=== PATIENT | female | born 1970 | race Caucasian/White ===

== ENCOUNTER 2017-04-09 12:52 | Inpatient (IN) | payer MEDICAID, OTHER ==
[~2017-04-09 12:52] MED LIST: AMLO5TAB96 PO; ASPI81 PO; BACL10TA PO; BENZ1TAB PO; CLOZ100T3 PO; NIAC500 PO; PREV30CA36 PO; RISP1 PO; TRAM50 PO
[2017-04-09 20:15] VITALS: BP 150/71; PULSE 82; RESP 20; TEMP 99.4; O2SAT 97
[2017-04-09] MEDS ORDERED: LORazepam 2 MG/ML VIAL IM PRN (20:45)
[2017-04-09] MEDS ORDERED: LORazepam 1 MG TAB PO PRN (20:45)
[2017-04-09] MEDS ORDERED: ACETAMINOPHEN 325 MG TAB PO PRN (20:45)
[2017-04-09] MEDS ORDERED: ALUMINUM/MAGNESIUM/SIMETH 30 ML CUP PO PRN (20:45)
[2017-04-09] MEDS: REMOVE OLD NICOTINE PATCH T-DERMAL SCH (21:00)
[2017-04-09] MEDS: QUEtiapine FUMARATE 200 MG TAB PO SCH (21:15)
[2017-04-09] MEDS: diphenhydrAMINE HCL 25 MG CAP PO SCH (21:15)
[2017-04-09] MEDS: GABAPENTIN 300 MG CAP PO SCH (21:30)
[2017-04-10 05:59] VITALS: BP 139/71; PULSE 102; RESP 18; TEMP 98.9
[2017-04-10] MEDS: PANTOPRAZOLE SOD 40 MG DELAYED RELEASE TAB PO SCH (09:00)
[2017-04-10] MEDS: QUEtiapine FUMARATE 200 MG TAB PO SCH ×2 (09:00→20:51)
[2017-04-10] MEDS: NICOTINE 21 MG/24 HR PATCH T-DERMAL SCH (09:00)
[2017-04-10] MEDS ORDERED: LINZESS 290 MCG PO SCH (09:00)
[2017-04-10] MEDS: GABAPENTIN 300 MG CAP PO SCH ×4 (09:00→20:51)
[2017-04-10 09:04] LABS: BICARBONATE 25.4 MEQ/L (21.0-32.0); BLOOD UREA NITROGEN 10 MG/DL (7-18); GLOMERULAR FILTRATION RATE 80 ML/MIN (>89)
[2017-04-10 09:08] LABS: HDL CHOLESTEROL 73.2 MG/DL (40.0-60.0); LDL CHOLESTEROL 66 MG/DL (0-99)
[2017-04-10 09:27] LABS: ANION GAP 9 MEQ/L (5-15); CHLORIDE 109 MEQ/L (98-107); POTASSIUM 3.7 MEQ/L (3.5-5.1); SODIUM (NA) 143 MEQ/L (136-145)
[2017-04-10 11:09] LABS: HEMOGLOBIN A1a 1.4 %; HEMOGLOBIN A1b 1.6 %; HEMOGLOBIN Ao 86.1 %; HEMOGLOBIN LA1C 1.9 %; HEMOGLOBIN P3 3.3 %
[2017-04-10 15:48] VITALS: BP 125/84; PULSE 123; RESP 18; O2SAT 96
[2017-04-10] MEDS ORDERED: QUET-73 PO (17:20)
[2017-04-10] MEDS ORDERED: GABA300C5 PO (17:20)
[2017-04-10] MEDS ORDERED: DIPH25CA PO (17:20)
[2017-04-10] MEDS ORDERED: MIRT30TA PO (17:20)
[2017-04-10] MEDS ORDERED: HYDR100C PO (17:20)
[2017-04-10] MEDS ORDERED: OMEP40CA2 PO (17:20)
[2017-04-10] MEDS ORDERED: LINA290C PO (17:20)
[2017-04-10] MEDS: LORazepam 2 MG TAB PO SCH ×2 (17:22→20:50)
--- NOTE | 2017-04-10 18:12 | HHI.HP ---
Provisional Diagnosis Admission Date Apr 09, 2017 at 20:00 [place] I. Schizoaffective disorder [place] II. deferred [place] III. GERD [place] IV. chronic mental illness, limited social support [place] V. 35 Certification of Person's Competence To Provide Express and Informed Consent I have personally examined Natasha Carter , a person being served at [facility] on, Apr 10, 2017 18:11. Express and informed consent means consent voluntarily given in writing, by a competent person, after sufficient explanation and disclosure of the subject matter involved to enable the person to make a knowing and willful decision without any element of force, fraud, deceit, duress, or other form of constraint or coercion. This person is 18 years of age or older, is not now known to be incompetent to consent to treatment with a guardian advocate, and does not have a health care surrogate or proxy currently making medical treatment decisions. I have found this person to be one of the following: [] Competent to provide express and informed consent, as defined above, for voluntary admission to this facility and is competent to provide express and informed consent for treatment. He/she has the consistent capacity to make well reasoned, willful, and knowing decisions concerning his or her medical or mental health treatment. The person fully and consistently understands the purpose of the admission for examination/placement and is fully capable of personally exercising all rights assured [place] [x] Incompetent to provide express and informed consent to voluntary admission, and this is incompetent to provide express and informed consent to treatment. The person must be transferred to involuntary status and a petition for a guardian advocate filed with the Circuit Court. [] Refusing to provide express and informed consent to voluntary admission but is competent to provide express and informed consent for treatment. The person must be discharged or transferred to involuntary status. Form shall be completed within 24 hours of a person's arrival at the receiving facility and filed in the clinical record of each person: 1. Admitted on a voluntary basis 2. Permitted to provide express and informed consent to his/her own treatment 3. Allowed to transfer from involuntary to voluntary status 4. Prior to permitting a person to consent to his or her own treatment after having been previously found incompetent to consent to treatment. History of Present Illness Capacity: Has Capacity (for medications only) HPI Patient is a 47 y/o woman, , unemployed on SSI, domiciled with mother, past psychiatric history of schizoaffective disorder, previous psychiatric admissions (last here at [facility] in 2002), no previous suicide attempts who presented to the hospital under [place] act due to recent decompensation. Patient was admitted to the inpatient psychiatry unit where she was found lying on hospital bed asleep and unable to participate in interview. After discussing with nursing staff, it was reported that the patient had catatonic-like presentation and would not engage in interview. Patient was given Ativan which she began to respond to but had limited responses due to the same. Patient was noted to be disorganized, responded inappropriately with nonsensical statements. She was able to state taking clozaril which was a medication that she previously had. Currently patient with limited interaction. Family psychiatric history: patient unable to respond adequately to. Past psychiatric history: previous psychiatric diagnosis of schizoaffective disorder as per chart, previous psychiatric admissions (last admission at [facility] was in 2002), denies previous suicide attempts or self injurious behavior. Has had previous medication trials which she mentioned clozaril (as stated above). Patient was not able to respond if she had history of abuse. Substance use history: denies Past medical history: GERD as per chart Allergies: Haloperidol Social history: as per chart, , no children, living with mother, unemployed on [facility]. Review of Systems ROS Limitations: Psychotic, Other (catatonic) Except as stated in HPI: all other systems reviewed are Neg Past Psych History Psychological trauma history patient unable to respond adequately due to psychosis Violence risk - others (6 mos) low Violence risk - self (6 mos) low Substance Abuse History Drugs/Alcohol past 12 months denies Past Family Social History Coded Allergies: haloperidol (Unverified Allergy, Severe, 04/10/17) Reported Medications Omeprazole (Omeprazole) 40 Mg Cap, 40 MG PO DAILY, #30 CAP 0 Refills 04/10/17 Mirtazapine (Mirtazapine) 30 Mg Tab, 30 MG PO HS for Depression Control, #30 TAB 0 Refills 04/10/17 Hydroxyzine Pamoate (Hydroxyzine Pamoate) 100 Mg Cap, 100 MG PO QID Y for ANXIETY, CAP 0 Refills 04/10/17 Gabapentin (Gabapentin) 300 Mg Cap, 300 MG PO QID, #90 CAP 0 Refills 04/10/17 Quetiapine ER (Quetiapine ER) 400 Mg Tab, 800 MG PO DAILYqhs, #30 TAB 0 Refills 04/10/17 Linaclotide (Linzess) 290 Mcg Cap, 290 MCG PO DAILY, CAP 0 Refills 04/10/17 Diphenhydramine (Diphenhydramine) 25 Mg Cap, 25 MG PO HS Y for INSOMNIA, CAP 0 Refills 04/10/17 Current Medications Medications (Trade) Dose Ordered Sig/Vinicio Route Start Time Stop Time Status Last Admin (Ativan) 1 mg Q6H PRN PO 04/09/17 20:45 (Ativan Inj) 1 mg Q6H PRN IM 04/09/17 20:45 04/10/17 11:06 (Habitrol 21 Mg Patch.24 Hr) 1 patch DAILY T-DERMAL 04/10/17 09:00 Miscellaneous Information 1 HS T-DERMAL 04/09/17 21:00 (Tylenol) 650 mg Q4H PRN PO 04/09/17 20:45 (Milk Of Magnesia Liq) 30 ml DAILY PRN PO 04/09/17 20:45 (Mag-Al Plus Susp Liq) 30 ml Q6H PRN PO 04/09/17 20:45 (Benadryl) 25 mg HS PO 04/09/17 21:15 Patient Own Medication PT OWN MED: LINZ... DAILY PO 04/10/17 09:00 Future Hold (SEROquel) 400 mg BID PO 04/09/17 21:15 (Neurontin) 300 mg QID PO 04/09/17 21:30 04/10/17 17:22 (Vistaril) 100 mg TID PRN PO 04/09/17 21:15 (Remeron) 30 mg HS PO 04/10/17 21:00 (Protonix) 40 mg DAILY PO 04/10/17 09:00 (Ativan) 2 mg Q6H PO 04/10/17 15:00 04/10/17 17:22 Family History patient unable to respond adequately due to psychosis Social History as per chart, , no children, living with mother, unemployed on SSI. Patient's Strengths (min. 2) limited verbal response, mother as social support Physical Exam Patient found to be lying on hospital bed appearing catatonic, limited movement of extremities, no tremors of EPS, noted psychomotor retardation. Vital Signs Vital Signs Date Time Temp Pulse Resp B/P (MAP) Pulse Ox O2 Delivery O2 Flow Rate FiO2 04/10/17 15:48 123 18 125/84 (98) 96 04/10/17 05:59 98.9 I/O 04/10/17 04/10/17 04/11/17 08:00 16:00 00:00 Intake Total 240 ml Balance 240 ml Lab Results labs reviewed Test 04/10/17 07:10 Blood Urea Nitrogen 10 MG/DL Creatinine 0.77 MG/DL Random Glucose 95 MG/DL Calcium Level 9.0 MG/DL Sodium Level 143 MEQ/L Potassium Level 3.7 MEQ/L Chloride Level 109 MEQ/L Carbon Dioxide Level 25.4 MEQ/L Anion Gap 9 MEQ/L Estimat Glomerular Filtration Rate 80 ML/MIN Hemoglobin A1c 5.4 % Triglycerides Level 58 MG/DL Cholesterol Level 151 MG/DL LDL Cholesterol 66 MG/DL HDL Cholesterol 73.2 MG/DL Cholesterol/HDL Ratio 2.06 RATIO Mental Status Examination Appearance appears younger than stated age, in [facility], lying on hospital bed, superficially cooperative due to catatonic-like presentation, poor eye contact. Speech: Slow Memory: Impaired (describe) Thought Process: Other (disorganized) Thought Content: Other (nonsensical statements) Language limited response, non spontanous Fund of Knowledge unable to assess Hallucination Type: None (unable to assess due to current presentation) Attention and Concentration: Abnormal Suicidal Ideation: No Previous Suicide Attempts: No Homicidal Ideation: No Previous Homicide Attempts: No Insight: Poor Judgment: Poor Affect: Other Affect if Inappropriate: Flat Mood: Other (patient could not express due to current presentation) Assessment & Plan Problem List: (1) Schizoaffective disorder, bipolar type, with catatonia ICD Codes: F25.0 - Schizoaffective disorder, bipolar type; F06.1 - Catatonic disorder due to known physiological condition Assessment & Plan Estimated LOS: 5-7 days. Patient is a 47 y/o woman who carries a diagnosis of schizoaffective disorder brought in under [place] act and currently noted to be catatonic with limited interaction during interview. Will start lorazepam 2mg PO q6hrs for catatonia. Continue home meds of quetiapine 400mg PO BID, mirtazapine 30mg PO HS, gabapentin 300mg PO QID. Monitor for medication response and ADRs. Continue to monitor mood and behavior. Collateral information pending from mother. Petition for involuntary admission started, will request second opinion. Discharge planning in progress. Aly Carroll MD Apr 10, 2017 18:12
[2017-04-10] MEDS: diphenhydrAMINE HCL 25 MG CAP PO SCH (20:50)
[2017-04-10] MEDS: MIRTAZAPINE 15 MG TAB PO SCH (20:51)
[2017-04-10] MEDS: REMOVE OLD NICOTINE PATCH T-DERMAL SCH (20:51)
[2017-04-11] MEDS: LORazepam 2 MG TAB PO SCH ×2 (04:10→08:56)
[2017-04-11 05:50] VITALS: BP 110/60; PULSE 93; RESP 18; TEMP 97.3; O2SAT 99
[2017-04-11] MEDS: QUEtiapine FUMARATE 200 MG TAB PO SCH ×2 (08:56→21:00)
[2017-04-11] MEDS: GABAPENTIN 300 MG CAP PO SCH ×4 (08:56→21:00)
[2017-04-11] MEDS: PANTOPRAZOLE SOD 40 MG DELAYED RELEASE TAB PO SCH (08:56)
[2017-04-11] MEDS: NICOTINE 21 MG/24 HR PATCH T-DERMAL SCH (08:56)
--- NOTE | 2017-04-11 11:17 | PD.PSY.CON ---
Provisional Diagnosis Admission Date Apr 09, 2017 at 20:00 [place] I. 1. Schizoaffective disorder [place] II. Deferred History of Present Illness Service Psychiatry Consult Requested By Dr. Carroll Reason for Consult Second opinion for involuntary psychiatric hospitalization Primary Care Physician Melvi Rodriguez MD HPI From Dr. Carroll's H&P: Patient is a 47 y/o woman, , unemployed on [facility], domiciled with mother, past psychiatric history of schizoaffective disorder, previous psychiatric admissions (last here at [facility] in 2002), no previous suicide attempts who presented to the hospital under [place] act due to recent decompensation. Patient was admitted to the inpatient psychiatry unit where she was found lying on hospital bed asleep and unable to participate in interview. After discussing with nursing staff, it was reported that the patient had catatonic-like presentation and would not engage in interview. Patient was given Ativan which she began to respond to but had limited responses due to the same. Patient was noted to be disorganized, responded inappropriately with nonsensical statements. She was able to state taking clozaril which was a medication that she previously had. Currently patient with limited interaction. Family psychiatric history: patient unable to respond adequately to. Past psychiatric history: previous psychiatric diagnosis of schizoaffective disorder as per chart, previous psychiatric admissions (last admission at [facility] was in 2002), denies previous suicide attempts or self injurious behavior. Has had previous medication trials which she mentioned clozaril (as stated above). Patient was not able to respond if she had history of abuse. Substance use history: denies Past medical history: GERD as per chart Allergies: Haloperidol Social history: as per chart, , no children, living with mother, unemployed on [facility]. On my examination today: Patient seen and examined with nurse. Chart reviewed. Case discussed with nursing staff. On my examination today, the patient is somewhat stuporous and largely mute. She does verbalize a little, saying "I'm so confused." No posturing or stereotypies noted. She does appear somewhat internally preoccupied. Psychiatric interview is limited by ongoing catatonic state, and I am unable to obtain any meaningful past psychiatric, family, chemical dependency or social history from this patient for this reason. Review of Systems ROS Limitations: Psychotic, Poor Historian Except as stated in HPI: all other systems reviewed are Neg Past Family Social History Coded Allergies: haloperidol (Unverified Allergy, Severe, 04/10/17) Past Medical History See EMR Reported Medications Omeprazole (Omeprazole) 40 Mg Cap, 40 MG PO DAILY, #30 CAP 0 Refills 04/10/17 Mirtazapine (Mirtazapine) 30 Mg Tab, 30 MG PO HS for Depression Control, #30 TAB 0 Refills 04/10/17 Hydroxyzine Pamoate (Hydroxyzine Pamoate) 100 Mg Cap, 100 MG PO QID Y for ANXIETY, CAP 0 Refills 04/10/17 Gabapentin (Gabapentin) 300 Mg Cap, 300 MG PO QID, #90 CAP 0 Refills 04/10/17 Quetiapine ER (Quetiapine ER) 400 Mg Tab, 800 MG PO DAILYqhs, #30 TAB 0 Refills 04/10/17 Linaclotide (Linzess) 290 Mcg Cap, 290 MCG PO DAILY, CAP 0 Refills 04/10/17 Diphenhydramine (Diphenhydramine) 25 Mg Cap, 25 MG PO HS Y for INSOMNIA, CAP 0 Refills 04/10/17 Current Medications Medications (Trade) Dose Ordered Sig/Vinicio Route Start Time Stop Time Status Last Admin (Ativan) 1 mg Q6H PRN PO 04/09/17 20:45 (Ativan Inj) 1 mg Q6H PRN IM 04/09/17 20:45 04/10/17 11:06 (Habitrol 21 Mg Patch.24 Hr) 1 patch DAILY T-DERMAL 04/10/17 09:00 Miscellaneous Information 1 HS T-DERMAL 04/09/17 21:00 (Tylenol) 650 mg Q4H PRN PO 04/09/17 20:45 (Milk Of Magnesia Liq) 30 ml DAILY PRN PO 04/09/17 20:45 (Mag-Al Plus Susp Liq) 30 ml Q6H PRN PO 04/09/17 20:45 (Benadryl) 25 mg HS PO 04/09/17 21:15 04/10/17 20:50 Patient Own Medication PT OWN MED: LINZ... DAILY PO 04/10/17 09:00 Future Hold (SEROquel) 400 mg BID PO 04/09/17 21:15 04/11/17 08:56 (Neurontin) 300 mg QID PO 04/09/17 21:30 04/11/17 08:56 (Vistaril) 100 mg TID PRN PO 04/09/17 21:15 (Remeron) 30 mg HS PO 04/10/17 21:00 04/10/17 20:51 (Protonix) 40 mg DAILY PO 04/10/17 09:00 04/11/17 08:56 (Ativan) 2 mg Q6H PO 04/10/17 15:00 04/11/17 04:10 Patient's Strengths (min. 2) In a monitored setting. Per RN did have some positive response to Ativan. Physical Exam Physical exam completed by ED provider. On my examination today, the patient appears to be in no acute physical distress. She is somewhat stuporous but no other motor abnormalities noted. Labs and vitals reviewed: Vital Signs Vital Signs Date Time Temp Pulse Resp B/P (MAP) Pulse Ox O2 Delivery O2 Flow Rate FiO2 04/11/17 05:50 97.3 93 18 110/60 (77) 99 Lab Results Laboratory Tests Test 04/10/17 07:10 Blood Urea Nitrogen 10 MG/DL Creatinine 0.77 MG/DL Random Glucose 95 MG/DL Calcium Level 9.0 MG/DL Sodium Level 143 MEQ/L Potassium Level 3.7 MEQ/L Chloride Level 109 MEQ/L Carbon Dioxide Level 25.4 MEQ/L Anion Gap 9 MEQ/L Estimat Glomerular Filtration Rate 80 ML/MIN Hemoglobin A1c 5.4 % Triglycerides Level 58 MG/DL Cholesterol Level 151 MG/DL LDL Cholesterol 66 MG/DL HDL Cholesterol 73.2 MG/DL Cholesterol/HDL Ratio 2.06 RATIO Mental Status Examination No hand tremor, no posturing, no stereotypies Appearance Disheveled. In hospital gown. Speech: Slow (largely mute) Orientation: Person Memory: Impaired (describe) Thought Process: Other (slowed) Thought Content: Other (limited sample) Language Limited sample Fund of Knowledge Limited sample Hallucination Type: None (appears a little internally preoccupied) Attention and Concentration: Abnormal Suicidal Ideation: No (unable to assess) Previous Suicide Attempts: No Homicidal Ideation: No (unable to assess) Previous Homicide Attempts: No Insight: Poor Judgment: Poor Affect if Inappropriate: Flat Mood: Other (unable to assess) Assessment & Plan Problem List: (1) Schizoaffective disorder, bipolar type, with catatonia ICD Codes: F25.0 - Schizoaffective disorder, bipolar type; F06.1 - Catatonic disorder due to known physiological condition Assessment & Plan Given the circumstances of the patient's presentation here and her presentation on my examination today, I concur with Dr. Carroll that the patient meets criteria for involuntary psychiatric hospitalization under the Escudero act. I have completed the second opinion paperwork. Further care as per Dr. Carroll. Thank you very much for this consultation. Signing off. Discharge Planning Per Dr. Carroll. Request HC Surrog/Guard Advoc?: No Nigel Churchill MD Apr 11, 2017 11:17
--- NOTE | 2017-04-11 14:02 | HHI.PYPN ---
Subjective Remarks Patient seen for follow up; chart reviewed. Discussion with nursing staff, patient yesterday after start of Ativan was active, no longer appearing catatonic, and began to undress which she required redirection and moved to the acute unit. Patient was found lying on bed, noted to be sedated but responsive. Patient was attempted to wake up but was too sedated to engage appropriately in interview. Patient able to nod yes or no to questions which she denies any SI or HI. Review of Systems ROS Limitations: Other (sedated) Objective Alert: Yes [place]: Person Mood: Other (unable to express mood due to sedation) Affect: Other (sedated) Memory Intact: Comment (unable to assess) Hallucinations: Other (unable to assess) Delusions: No Delusion Type: Other Suicidal: Ideation (denies) Homicidal: Ideation (denies) Insight/Judgment poor insightt, impulse control and judgment Vitals/IOs Vital Signs Date Time Temp Pulse Resp B/P (MAP) Pulse Ox O2 Delivery O2 Flow Rate FiO2 04/11/17 05:50 97.3 93 18 110/60 (77) 99 Assessment & Plan Problem List: (1) Schizoaffective disorder, bipolar type, with catatonia ICD Codes: F25.0 - Schizoaffective disorder, bipolar type; F06.1 - Catatonic disorder due to known physiological condition Assessment & Plan Patient no longer noted to be catatonic but noted to be very sedated. Will reduce Ativan to 1mg PO q6hrs for catatonia. Continue other medications and care as indicated. Monitor mood and behavior. Discharge planning in progress. Justification for Cont. Inpt. At risk for further decompensation if at lower level of care. Request HC Surrog/Guard Advoc?: Aly Fairchild MD Apr 11, 2017 14:02
[2017-04-11] MEDS: LORazepam 1 MG TAB PO SCH ×2 (15:00→21:00)
[2017-04-11 17:57] VITALS: BP 135/62; PULSE 89; RESP 17; TEMP 97.9; O2SAT 98
[2017-04-11] MEDS: diphenhydrAMINE HCL 25 MG CAP PO SCH (21:00)
[2017-04-11] MEDS: MIRTAZAPINE 15 MG TAB PO SCH (21:00)
[2017-04-11] MEDS: REMOVE OLD NICOTINE PATCH T-DERMAL SCH (21:00)
[2017-04-12] MEDS: LORazepam 1 MG TAB PO SCH ×3 (03:00→15:00)
[2017-04-12 06:16] VITALS: BP 120/71; PULSE 100; RESP 15; TEMP 98; O2SAT 98
[2017-04-12] MEDS: QUEtiapine FUMARATE 200 MG TAB PO SCH ×2 (07:53→21:00)
[2017-04-12] MEDS: GABAPENTIN 300 MG CAP PO SCH ×4 (07:53→21:00)
[2017-04-12] MEDS: PANTOPRAZOLE SOD 40 MG DELAYED RELEASE TAB PO SCH (07:53)
[2017-04-12] MEDS: NICOTINE 21 MG/24 HR PATCH T-DERMAL SCH (07:54)
--- NOTE | 2017-04-12 15:35 | HHI.PYPN ---
Subjective Remarks Pt seen and discussed with staff. She has been compliant with medications but Ativan was held because of sedation. No behavioral problems on unit. No SI/HI. NO catatonia. Objective Alert: Yes [place]: Person Mood: Calm, Other Affect: Restricted Memory Intact: Comment (fair) Hallucinations: Other (none) Delusions: No Delusion Type: Other Suicidal: Ideation (denies) Homicidal: Ideation (denies) Insight/Judgment limited Vitals/IOs Vital Signs Date Time Temp Pulse Resp B/P (MAP) Pulse Ox O2 Delivery O2 Flow Rate FiO2 04/12/17 06:16 98.0 100 15 120/71 (87) 98 Assessment & Plan Problem List: (1) Schizoaffective disorder, bipolar type, with catatonia ICD Codes: F25.0 - Schizoaffective disorder, bipolar type; F06.1 - Catatonic disorder due to known physiological condition Assessment & Plan Will taper lorazepam again due to sedation. Estimated LOS: days Justification for Cont. Inpt. medication changes requiring monitoring Request HC Surrog/Guard Advoc?: Pinky Kebede MD Apr 12, 2017 15:35
[2017-04-12 18:33] VITALS: BP 127/64; PULSE 71; RESP 18; TEMP 97.9; O2SAT 98
[2017-04-12] MEDS: REMOVE OLD NICOTINE PATCH T-DERMAL SCH (21:00)
[2017-04-12] MEDS: MIRTAZAPINE 15 MG TAB PO SCH (21:00)
[2017-04-12] MEDS: diphenhydrAMINE HCL 25 MG CAP PO SCH (21:00)
[2017-04-13] MEDS: QUEtiapine FUMARATE 200 MG TAB PO SCH ×3 (03:13→21:00)
[2017-04-13] MEDS: MIRTAZAPINE 15 MG TAB PO SCH (03:15)
[2017-04-13] MEDS: GABAPENTIN 300 MG CAP PO SCH ×5 (03:18→21:00)
[2017-04-13 06:26] VITALS: BP 109/67; PULSE 81; RESP 18; TEMP 98.3; O2SAT 95
[2017-04-13] MEDS: NICOTINE 21 MG/24 HR PATCH T-DERMAL SCH (08:41)
[2017-04-13] MEDS: PANTOPRAZOLE SOD 40 MG DELAYED RELEASE TAB PO SCH (08:41)
[2017-04-13] MEDS ORDERED: LORazepam 1 MG TAB PO SCH (09:00)
[2017-04-13] MEDS: MAGNESIUM HYDROXIDE SUSP 30 ML CUP PO PRN (09:15)
--- NOTE | 2017-04-13 16:18 | HHI.PYPN ---
Subjective Remarks Pt seen and discussed with staff. Pt continues to experience sedation and has slept most of the afternoon. She reports that she only takes mirtazapine for sleep at home and prior to hospitalization had not been compliant with psychiatric medications. She reports that thoughts are more clear today but still foggy. She denies SI/HI. Objective Alert: Yes [place]: Person, Place, Date, Situation Mood: Calm, Other Affect: Restricted Memory Intact: Comment (fair) Hallucinations: Other (none) Delusions: No Delusion Type: Other (none) Suicidal: Ideation (denies) Homicidal: Ideation (denies) Insight/Judgment fair Vitals/IOs Vital Signs Date Time Temp Pulse Resp B/P (MAP) Pulse Ox O2 Delivery O2 Flow Rate FiO2 04/13/17 06:26 98.3 81 18 109/67 (81) 95 Intake and Output 04/13/17 04/13/17 04/14/17 08:00 16:00 00:00 Intake Total 240 ml Balance 240 ml Assessment & Plan Problem List: (1) Schizoaffective disorder, bipolar type, with catatonia ICD Codes: F25.0 - Schizoaffective disorder, bipolar type; F06.1 - Catatonic disorder due to known physiological condition Assessment & Plan Will hold mirtazapine due to sedation. If persists, will need to consider lower daytime seroquel dose. Estimated LOS: days Justification for Cont. Inpt. medication changes requiring monitoring Request HC Surrog/Guard Advoc?: Pinky Kebede MD Apr 13, 2017 16:18
[2017-04-13 18:24] VITALS: BP 98/60; PULSE 83; RESP 18; TEMP 98.3; O2SAT 96
[2017-04-13] MEDS: diphenhydrAMINE HCL 25 MG CAP PO SCH (21:00)
[2017-04-13] MEDS: REMOVE OLD NICOTINE PATCH T-DERMAL SCH (21:00)
[2017-04-14 04:36] VITALS: BP 124/64; PULSE 75; RESP 17; TEMP 98
[2017-04-14] MEDS: NICOTINE 21 MG/24 HR PATCH T-DERMAL SCH (09:00)
[2017-04-14] MEDS: PANTOPRAZOLE SOD 40 MG DELAYED RELEASE TAB PO SCH (09:00)
[2017-04-14] MEDS: GABAPENTIN 300 MG CAP PO SCH ×4 (09:00→20:42)
[2017-04-14] MEDS: QUEtiapine FUMARATE 200 MG TAB PO SCH ×2 (09:00→20:42)
--- NOTE | 2017-04-14 17:55 | HHI.PYPN ---
Subjective Remarks Patient seen for follow-up, chart reviewed. Patient seen lying on hospital bed, calm and cooperative with interview. Nursing reported patient continues to be disorganized , no longer catatonic, taking medications. Patient reports having had difficulty with sleep last night, mood having been "good, bad and otherwise " patient could not elaborate why she was feeling sad only that she felt bad haivng said mean things (unspecified to whom). She's noted to answer inappropriately with thought blocking and responding to internal stimuli. She reports AH but is unable to elaborate. Review of Systems Except as stated in HPI: all other systems reviewed are Neg Objective Alert: Yes [place]: Person, Place, Date, Situation Mood: Calm, Other Affect: Labile (laughing inappropriatley at times) Memory Intact: Comment (fair) Hallucinations: Auditory Delusions: No Delusion Type: Other (none) Suicidal: Ideation (denies) Homicidal: Ideation (denies) Insight/Judgment poor insight, fair impulse control, limited judgment Vitals/IOs Vital Signs Date Time Temp Pulse Resp B/P (MAP) Pulse Ox O2 Delivery O2 Flow Rate FiO2 04/14/17 04:36 98.0 75 17 124/64 (84) 04/13/17 18:24 96 Intake and Output 04/14/17 04/14/17 04/15/17 08:00 16:00 00:00 Intake Total 260 ml Balance 260 ml Assessment & Plan Problem List: (1) Schizoaffective disorder, bipolar type, with catatonia ICD Codes: F25.0 - Schizoaffective disorder, bipolar type; F06.1 - Catatonic disorder due to known physiological condition Assessment & Plan Patient continues to be disorganized, internally preoccupied with AH but no longer noted to be catatonic. Will increase diphenhydramine 50mg PO HS as she reports sleep difficulty. Will continue current quetiapine dose and consider adding second antipsychotic if partial response with current regimen. Discharge planning in progress. Justification for Cont. Inpt. At risk for further decompensation if at lower level of care Request HC Surrog/Guard Advoc?: Aly Fairchild MD Apr 14, 2017 17:55
[2017-04-14] MEDS: REMOVE OLD NICOTINE PATCH T-DERMAL SCH (20:42)
[2017-04-14] MEDS: diphenhydrAMINE HCL 25 MG CAP PO SCH (20:42)
[2017-04-15] MEDS: NICOTINE 21 MG/24 HR PATCH T-DERMAL SCH (09:00)
[2017-04-15] MEDS: PANTOPRAZOLE SOD 40 MG DELAYED RELEASE TAB PO SCH (09:13)
[2017-04-15] MEDS: QUEtiapine FUMARATE 200 MG TAB PO SCH ×2 (09:14→20:32)
[2017-04-15] MEDS: GABAPENTIN 300 MG CAP PO SCH ×4 (09:14→20:32)
--- NOTE | 2017-04-15 16:23 | HHI.PYPN ---
Subjective Remarks Patient seen for follow-up, chart reviewed. Patient noted to be lying on hospital bed sleeping but able to wake up for interview. Patient states that she is feeling "tired" with mood being "sad" due to her missing her family and friends. She states that she had difficulty sleeping last night due to not being able to "get my mind to stop thinking". Patient noted to continue to have some thought blocking and laughing inappropriately once but denied any recent AH. She states that she last spoke with her mother on day 2 of her admission. She was encouraged to be less isolative and engage in groups and activities which she agreed to. Review of Systems Except as stated in HPI: all other systems reviewed are Neg Objective Alert: Yes [place]: Person, Place, Date, Situation Mood: Calm, Other Affect: Restricted Memory Intact: Comment (fair) Hallucinations: Auditory Delusions: No Delusion Type: Other (none) Suicidal: Ideation (denies) Homicidal: Ideation (denies) Insight/Judgment poor insight, fair impulse control, limited judgment Vitals/IOs Vital Signs Date Time Temp Pulse Resp B/P (MAP) Pulse Ox O2 Delivery O2 Flow Rate FiO2 04/14/17 04:36 98.0 75 17 124/64 (84) 04/13/17 18:24 96 Intake and Output 04/15/17 04/15/17 04/16/17 08:00 16:00 00:00 Intake Total 600 ml Balance 600 ml Assessment & Plan Problem List: (1) Schizoaffective disorder, bipolar type, with catatonia ICD Codes: F25.0 - Schizoaffective disorder, bipolar type; F06.1 - Catatonic disorder due to known physiological condition Assessment & Plan Patient noted to be less disorganized today with less tangentiality and able to respond more appropriately. Due to increased sedation during the day will try and reduce diphenhydramine to 25mg PO HS. Continue rest of medication regimen. Discharge planning in progress. Justification for Cont. Inpt. At risk for further decompensation if at lower level of care. Request HC Surrog/Guard Advoc?: Aly Fairchild MD Apr 15, 2017 16:23
[2017-04-15 17:02] VITALS: BP 107/60; PULSE 100; RESP 17; TEMP 98.4; O2SAT 100
[2017-04-15] MEDS: diphenhydrAMINE HCL 25 MG CAP PO SCH (20:32)
[2017-04-15] MEDS: REMOVE OLD NICOTINE PATCH T-DERMAL SCH (20:32)
[2017-04-16 06:09] VITALS: BP 114/69; PULSE 71; RESP 16; TEMP 97.6; O2SAT 97
[2017-04-16] MEDS: NICOTINE 21 MG/24 HR PATCH T-DERMAL SCH (09:00)
[2017-04-16] MEDS: PANTOPRAZOLE SOD 40 MG DELAYED RELEASE TAB PO SCH (09:15)
[2017-04-16] MEDS: GABAPENTIN 300 MG CAP PO SCH ×4 (09:15→20:31)
[2017-04-16] MEDS: QUEtiapine FUMARATE 200 MG TAB PO SCH ×2 (09:15→20:31)
--- NOTE | 2017-04-16 16:00 | HHI.PYPN ---
Subjective Remarks Patient seen for follow-up, chart reviewed. Patient found lying on hospital bed sleeping but able to wake up for interview. She states feeling tired but noted to be more organized in thought process today. She mentions that prior to coming to the hospital she could not stop "all the mental stuff" which believes is part of the reason she was brought to the hospital. She mentions that since having been here she has notices to be able to think clearer but still feels her mind being "foggy". She reports decrease in AH for the last couple of days and recently have been "sounds". When asked if she had spoken to her mother or had a visit from her, she states being unsure. She acknowledges that she is not feeling at her best but would like to go home and does not want to stay to optimize her treatment. Review of Systems Except as stated in HPI: all other systems reviewed are Neg Objective Alert: Yes [place]: Person, Place, Date, Situation Mood: Calm Affect: Restricted Memory Intact: Comment (fair) Hallucinations: Auditory (less so) Delusions: No Delusion Type: Other (none) Suicidal: Ideation (denies) Homicidal: Ideation (denies) Insight/Judgment Limited insight, impulse control and judgment Vitals/IOs Vital Signs Date Time Temp Pulse Resp B/P (MAP) Pulse Ox O2 Delivery O2 Flow Rate FiO2 04/16/17 06:09 97.6 71 16 114/69 (84) 97 Assessment & Plan Problem List: (1) Schizoaffective disorder, bipolar type, with catatonia ICD Codes: F25.0 - Schizoaffective disorder, bipolar type; F06.1 - Catatonic disorder due to known physiological condition Assessment & Plan Patient noted to be improving but continues to endorse AH and although has improved with organized thought process continues to be confused at times. Will start Abilify 5mg PO in the afternoon, continue rest of medications. Patient will present to [place] [facility] tomorrow for petition for involuntary admission. Discharge planning in progress. Justification for Cont. Inpt. At risk for further decompensation if at lower level of care. Request HC Surrog/Guard Advoc?: Aly Fairchild MD Apr 16, 2017 16:00
[2017-04-16] MEDS: ARIPiprazole 5 MG TAB PO SCH (16:27)
[2017-04-16 18:00] VITALS: BP 123/81; PULSE 105; RESP 18; TEMP 99.3; O2SAT 100
[2017-04-16] MEDS: REMOVE OLD NICOTINE PATCH T-DERMAL SCH (20:31)
[2017-04-16] MEDS: diphenhydrAMINE HCL 25 MG CAP PO SCH (20:31)
[2017-04-17 05:23] VITALS: BP 100/60; PULSE 75; RESP 16; TEMP 97.9; O2SAT 97
[2017-04-17] MEDS: NICOTINE 21 MG/24 HR PATCH T-DERMAL SCH (08:02)
[2017-04-17] MEDS: QUEtiapine FUMARATE 200 MG TAB PO SCH ×2 (08:02→08:19)
[2017-04-17] MEDS: PANTOPRAZOLE SOD 40 MG DELAYED RELEASE TAB PO SCH ×2 (08:02→08:19)
[2017-04-17] MEDS: GABAPENTIN 300 MG CAP PO SCH ×4 (08:02→21:00)
[2017-04-17] MEDS: ARIPiprazole 5 MG TAB PO SCH (15:26)
--- NOTE | 2017-04-17 16:16 | HHI.PYPN ---
Subjective Remarks Patient seen for follow-up, chart reviewed. Patient presented to mental health court today for petition for involuntary hospitalization which glassware finisher had decided discharge. Patient after decided to sign voluntary admission to continue treatment. Patient states that she would like to go home but feels that if she felt better with continued treatment would feel more comfortable going home more stable. Project Manager Interior Design and therapist met with the patient's mother who expressed difficulty continuing caring for her daughter in light of her own medical issues. Review of Systems Except as stated in HPI: all other systems reviewed are Neg Objective Alert: Yes [place]: Person, Place, Date, Situation Mood: Calm Affect: Restricted Memory Intact: Comment (fair) Hallucinations: Auditory (less so) Delusions: No Delusion Type: Other (none) Suicidal: Ideation (denies) Homicidal: Ideation (denies) Insight/Judgment improved insight, fair impulse control and judgment Vitals/IOs Vital Signs Date Time Temp Pulse Resp B/P (MAP) Pulse Ox O2 Delivery O2 Flow Rate FiO2 04/17/17 05:23 97.9 75 16 100/60 (73) 97 Assessment & Plan Problem List: (1) Schizoaffective disorder, bipolar type, with catatonia ICD Codes: F25.0 - Schizoaffective disorder, bipolar type; F06.1 - Catatonic disorder due to known physiological condition Assessment & Plan Patient with improved positive symptoms but at times continues to have slight thought blocking. Will order EKG for monitoring. Will continue current treatment with upward titration if needed. Continue to encourage participation in groups and activities as well as maintanence of personal hygiene. Discharge planning in progress. Justification for Cont. Inpt. At risk for further decompensation if at lower level of care. Request HC Surrog/Guard Advoc?: Aly Fairchild MD Apr 17, 2017 16:16
[2017-04-17 18:00] VITALS: BP 134/84; PULSE 82; RESP 16; TEMP 98.4; O2SAT 98
[2017-04-17] MEDS: diphenhydrAMINE HCL 25 MG CAP PO SCH (21:00)
[2017-04-17] MEDS: REMOVE OLD NICOTINE PATCH T-DERMAL SCH (21:00)
[2017-04-18 06:06] VITALS: BP 115/64; PULSE 72; RESP 16; TEMP 98; O2SAT 97
[2017-04-18] MEDS: QUEtiapine FUMARATE 200 MG TAB PO SCH ×2 (07:59→21:53)
[2017-04-18] MEDS: GABAPENTIN 300 MG CAP PO SCH ×4 (07:59→21:53)
[2017-04-18] MEDS: PANTOPRAZOLE SOD 40 MG DELAYED RELEASE TAB PO SCH (08:00)
[2017-04-18] MEDS: NICOTINE 21 MG/24 HR PATCH T-DERMAL SCH (08:00)
--- NOTE | 2017-04-18 10:26 | EKG ---
Date Performed: 04/17/2017 Time Performed: 20:54:49 PTAGE: 47 years EKG: Sinus rhythm NORMAL ECG PREVIOUS TRACING : 10/10/2000 22.10 Compared to prior tracing no significant change DOCTOR: Nigel Nance Interpretating Date/Time 04/18/2017 10:20:25
[2017-04-18 16:54] VITALS: BP 133/89; PULSE 80; RESP 17; TEMP 98.1; O2SAT 100
[2017-04-18] MEDS: REMOVE OLD NICOTINE PATCH T-DERMAL SCH (21:00)
[2017-04-18] MEDS: diphenhydrAMINE HCL 25 MG CAP PO SCH (21:52)
[2017-04-18] MEDS: QUEtiapine FUMARATE 300 MG TAB PO SCH (21:52)
--- NOTE | 2017-04-18 22:33 | HHI.PYPN ---
Subjective Remarks Patient seen for follow up; chart reviewed. Patient found walking on the unit. She states that her mood is "a little bit depressed" as she was participating in group earlier and saw others dancing which reminder her how much she misses her family. She repots having joined others outside. Currently reports feeling better after having received some medications to help relax her. Review of Systems Except as stated in HPI: all other systems reviewed are Neg Objective Alert: Yes [place]: Person, Place, Date, Situation Mood: Calm Affect: Restricted Memory Intact: Comment (fair) Hallucinations: Auditory (less so) Delusions: No Delusion Type: Other (none) Suicidal: Ideation (denies) Homicidal: Ideation (denies) Insight/Judgment limited insight, impulse control and judgment Vitals/IOs Vital Signs Date Time Temp Pulse Resp B/P (MAP) Pulse Ox O2 Delivery O2 Flow Rate FiO2 04/18/17 16:54 98.1 80 17 133/89 (104) 100 Assessment & Plan Problem List: (1) Schizoaffective disorder, bipolar type, with catatonia ICD Codes: F25.0 - Schizoaffective disorder, bipolar type; F06.1 - Catatonic disorder due to known physiological condition Assessment & Plan Patient noted to be more engaging and organized. Noted to be participating in groups and activities. Will discontinue Abilify and increase quetiapine to 400mg AM/ 500mg HS for psychosis. Discharge planning in progress. Justification for Cont. Inpt. At risk for further decompensation if at lower level of care. Request HC Surrog/Guard Advoc?: No Aly Carroll MD Apr 18, 2017 22:33
[2017-04-19 06:02] VITALS: BP 111/69; PULSE 82; RESP 16; TEMP 97.9; O2SAT 100
[2017-04-19] MEDS: NICOTINE 21 MG/24 HR PATCH T-DERMAL SCH (09:00)
[2017-04-19] MEDS: GABAPENTIN 300 MG CAP PO SCH ×4 (09:22→21:47)
[2017-04-19] MEDS: PANTOPRAZOLE SOD 40 MG DELAYED RELEASE TAB PO SCH (09:22)
[2017-04-19] MEDS: QUEtiapine FUMARATE 200 MG TAB PO SCH ×2 (09:22→21:47)
[2017-04-19] MEDS: MAGNESIUM HYDROXIDE SUSP 30 ML CUP PO PRN (09:30)
--- NOTE | 2017-04-19 16:32 | HHI.PYPN ---
Subjective Remarks Patient was seen and case discussed with nursing. Patient interviewed in bed. Says she is feeling sleepy. We'll need applesauce for dinner. Per nursing no bizarre statements her behavior was noticed today. Mood today is "kind of tired." Denies psychotic symptoms. Denies suicidal homicidal ideation intent or plan Objective Alert: Yes [place]: Person, Place, Date, Situation Mood: Calm Affect: Blunted Memory Intact: Comment (fair) Hallucinations: Auditory (less so) Delusions: No Delusion Type: Other (none) Suicidal: Ideation (denies) Homicidal: Ideation (denies) Insight/Judgment Poor Vitals/IOs Vital Signs Date Time Temp Pulse Resp B/P (MAP) Pulse Ox O2 Delivery O2 Flow Rate FiO2 04/19/17 06:02 97.9 82 16 111/69 (83) 100 Assessment & Plan Problem List: (1) Schizoaffective disorder, bipolar type, with catatonia ICD Codes: F25.0 - Schizoaffective disorder, bipolar type; F06.1 - Catatonic disorder due to known physiological condition Assessment & Plan Continue current treatment plan Justification for Cont. Inpt. Patient would decompensate in a less restrictive setting Request HC Surrog/Guard Advoc?: No Marco A Coughlin DO Apr 19, 2017 16:32
[2017-04-19] MEDS: LINZESS 290 MCG PO SCH (18:38)
[2017-04-19] MEDS: REMOVE OLD NICOTINE PATCH T-DERMAL SCH (21:00)
[2017-04-19] MEDS: QUEtiapine FUMARATE 300 MG TAB PO SCH (21:46)
[2017-04-19] MEDS: diphenhydrAMINE HCL 25 MG CAP PO SCH (21:47)
[2017-04-20 05:44] VITALS: BP 103/64; PULSE 72; RESP 16; TEMP 97.7; O2SAT 97
[2017-04-20] MEDS: QUEtiapine FUMARATE 200 MG TAB PO SCH ×2 (08:38→20:20)
[2017-04-20] MEDS: GABAPENTIN 300 MG CAP PO SCH ×4 (08:38→20:21)
[2017-04-20] MEDS: PANTOPRAZOLE SOD 40 MG DELAYED RELEASE TAB PO SCH (08:38)
[2017-04-20] MEDS: LINZESS 290 MCG PO SCH (08:40)
[2017-04-20] MEDS: NICOTINE 21 MG/24 HR PATCH T-DERMAL SCH (09:00)
--- NOTE | 2017-04-20 10:26 | HHI.PYPN ---
Subjective Remarks Patient was seen and case discussed with nursing. Patient had a visit with her mom. She is asking about discharge but concerned about placement. Behaving well on the unit. She denies suicidal or homicidal ideation intent or plan. She is vague and brief during the interview. Tolerating her medications well Objective Alert: Yes [place]: Person, Place, Date, Situation Mood: Calm Affect: Blunted Memory Intact: Comment (fair) Hallucinations: Auditory (denies) Delusions: No Delusion Type: Other (none) Suicidal: Ideation (denies) Homicidal: Ideation (denies) Insight/Judgment Poor Vitals/IOs Vital Signs Date Time Temp Pulse Resp B/P (MAP) Pulse Ox O2 Delivery O2 Flow Rate FiO2 04/20/17 05:44 97.7 72 16 103/64 (77 97 Assessment & Plan Problem List: (1) Schizoaffective disorder, bipolar type, with catatonia ICD Codes: F25.0 - Schizoaffective disorder, bipolar type; F06.1 - Catatonic disorder due to known physiological condition Assessment & Plan Continue current treatment plan Justification for Cont. Inpt. Patient will decompensate in a less restrictive setting Request HC Surrog/Guard Advoc?: No Marco A Coughlin DO Apr 20, 2017 10:26
[2017-04-20 17:49] VITALS: BP 135/77; PULSE 116; RESP 17; TEMP 97.7; O2SAT 100
[2017-04-20] MEDS: diphenhydrAMINE HCL 25 MG CAP PO SCH (20:20)
[2017-04-20] MEDS: QUEtiapine FUMARATE 300 MG TAB PO SCH (20:21)
[2017-04-20] MEDS: REMOVE OLD NICOTINE PATCH T-DERMAL SCH (20:22)
[2017-04-21 06:33] VITALS: BP 106/60; PULSE 74; RESP 16; TEMP 97.4; O2SAT 96
[2017-04-21] MEDS: LINZESS 290 MCG PO SCH (08:26)
[2017-04-21] MEDS: NICOTINE 21 MG/24 HR PATCH T-DERMAL SCH (09:00)
[2017-04-21] MEDS: QUEtiapine FUMARATE 200 MG TAB PO SCH ×2 (09:11→21:00)
[2017-04-21] MEDS: GABAPENTIN 300 MG CAP PO SCH ×4 (09:11→21:00)
[2017-04-21] MEDS: PANTOPRAZOLE SOD 40 MG DELAYED RELEASE TAB PO SCH (09:11)
--- NOTE | 2017-04-21 16:00 | HHI.PYPN ---
Subjective Remarks Patient seen for follow-up, chart reviewed. Patient found walking in the unit, calm and cooperative with interview. Patient states that she is feeling much better, noted to be organized and engaging in interview. She states that she would like a place with "high functioning people" for a living facility. She reports her mood as "alright...mood is up". She reports some dry mouth due to the medications. She denies SI, HI AVH or delusions at this time. Review of Systems Except as stated in HPI: all other systems reviewed are Neg Objective Alert: Yes [place]: Person, Place, Date, Situation Mood: Calm Affect: Restricted Memory Intact: Comment (fair) Hallucinations: Auditory, Other (denies) Delusions: No Delusion Type: Other (none) Suicidal: Ideation (denies) Homicidal: Ideation (denies) Insight/Judgment fair insight, impulse control and judgment Vitals/IOs Vital Signs Date Time Temp Pulse Resp B/P (MAP) Pulse Ox O2 Delivery O2 Flow Rate FiO2 04/21/17 06:33 97.4 74 16 106/60 (75) 96 Assessment & Plan Problem List: (1) Schizoaffective disorder, bipolar type, with catatonia ICD Codes: F25.0 - Schizoaffective disorder, bipolar type; F06.1 - Catatonic disorder due to known physiological condition Assessment & Plan Patient continues to respond well to treatment. Will continue current treatment. Patient to be discharged to [facility] when acquired by treatment team. Discharge planning in progress. Justification for Cont. Inpt. At risk for further decompensation if at lower level of care. Request HC Surrog/Guard Advoc?: No Aly Carroll MD Apr 21, 2017 16:00
[2017-04-21 17:54] VITALS: BP 100/73; PULSE 82; RESP 18; TEMP 98.1; O2SAT 100
[2017-04-21] MEDS: diphenhydrAMINE HCL 25 MG CAP PO SCH (21:00)
[2017-04-21] MEDS: QUEtiapine FUMARATE 300 MG TAB PO SCH (21:00)
[2017-04-22] MEDS: LINZESS 290 MCG PO SCH (08:14)
[2017-04-22] MEDS: PANTOPRAZOLE SOD 40 MG DELAYED RELEASE TAB PO SCH (08:15)
[2017-04-22] MEDS: GABAPENTIN 300 MG CAP PO SCH ×4 (08:16→20:27)
[2017-04-22] MEDS: QUEtiapine FUMARATE 200 MG TAB PO SCH ×2 (08:16→20:27)
--- NOTE | 2017-04-22 16:13 | HHI.PYPN ---
Subjective Remarks Patient seen for follow-up, chart reviewed. Patient noted to be lying on hospital bed, states that she is now "thinking clear", denies any perceptual disturbance. She reports tolerating the medicaitions well but notices dry mouth. Review of Systems Except as stated in HPI: all other systems reviewed are Neg Objective Alert: Yes [place]: Person, Place, Date, Situation Mood: Calm Affect: Appropriate Memory Intact: Comment (fair) Hallucinations: Auditory, Other (denies) Delusions: No Delusion Type: Other (none) Suicidal: Ideation (denies) Homicidal: Ideation (denies) Insight/Judgment fair insight, impulse control and judgment Vitals/IOs Vital Signs Date Time Temp Pulse Resp B/P (MAP) Pulse Ox O2 Delivery O2 Flow Rate FiO2 04/21/17 17:54 98.1 82 18 100/73 (82) 100 Intake and Output 04/22/17 04/22/17 04/23/17 08:00 16:00 00:00 Intake Total 240 ml Balance 240 ml Assessment & Plan Problem List: (1) Schizoaffective disorder, bipolar type, with catatonia ICD Codes: F25.0 - Schizoaffective disorder, bipolar type; F06.1 - Catatonic disorder due to known physiological condition Assessment & Plan Patient noted to improved mood, organized, future oriented. Will continue treatment. If patient's mother is willing to have patient back home then dishcarge likely. Discharge planning in progress. Justification for Cont. Inpt. At risk for further decompensation if at lower level of care. Request HC Surrog/Guard Advoc?: No Aly Carroll MD Apr 22, 2017 16:13
[2017-04-22 18:12] VITALS: BP 86/51; PULSE 83; RESP 17; TEMP 98; O2SAT 98
[2017-04-22] MEDS: QUEtiapine FUMARATE 300 MG TAB PO SCH (20:27)
[2017-04-22] MEDS: diphenhydrAMINE HCL 25 MG CAP PO SCH (20:28)
[2017-04-23 05:32] VITALS: BP 97/56; PULSE 78; RESP 18; TEMP 97.7; O2SAT 96
[2017-04-23] MEDS: LINZESS 290 MCG PO SCH (08:07)
[2017-04-23] MEDS: PANTOPRAZOLE SOD 40 MG DELAYED RELEASE TAB PO SCH (08:09)
[2017-04-23] MEDS: QUEtiapine FUMARATE 200 MG TAB PO SCH (08:09)
[2017-04-23] MEDS: GABAPENTIN 300 MG CAP PO SCH (08:09)
[2017-04-23] MEDS ORDERED: QUET1TAB11 PO (11:01)
[2017-04-23] MEDS ORDERED: NEUR300C PO (11:01)
[2017-04-23] MEDS ORDERED: QUET1TAB10 PO (11:01)
[2017-04-23] MEDS ORDERED: BENA25CA4 PO (11:01)
[2017-04-23] MEDS ORDERED: QUET1TAB9 PO (11:01)
[2017-04-23] MEDS ORDERED: PANT40TA3 PO (11:01)
--- NOTE | 2017-04-23 15:54 | HHI.DS ---
Psychiatry Discharge Summary Inpatient Psychiatric care?: Yes Advance Directive: No Mental Health AdvanceDirective: No Health Care Proxy: No Admission Admission Date Apr 09, 2017 at 20:00 Admission Diagnosis: (1) Schizoaffective disorder, bipolar type, with catatonia ICD Code: F25.0 - Schizoaffective disorder, bipolar type; F06.1 - Catatonic disorder due to known physiological condition Brief History From Dr. Carroll's H&P: Patient is a 47 y/o woman, , unemployed on [facility], domiciled with mother, past psychiatric history of schizoaffective disorder, previous psychiatric admissions (last here at [place] in 2002), no previous suicide attempts who presented to the hospital under [place] due to recent decompensation. Patient was admitted to the inpatient psychiatry unit where she was found lying on hospital bed asleep and unable to participate in interview. After discussing with nursing staff, it was reported that the patient had catatonic-like presentation and would not engage in interview. Patient was given Ativan which she began to respond to but had limited responses due to the same. Patient was noted to be disorganized, responded inappropriately with nonsensical statements. She was able to state taking clozaril which was a medication that she previously had. Currently patient with limited interaction. Family psychiatric history: patient unable to respond adequately to. Past psychiatric history: previous psychiatric diagnosis of schizoaffective disorder as per chart, previous psychiatric admissions (last admission at [facility] was in 2002), denies previous suicide attempts or self injurious behavior. Has had previous medication trials which she mentioned clozaril (as stated above). Patient was not able to respond if she had history of abuse. Substance use history: denies Past medical history: GERD as per chart Allergies: Haloperidol Social history: as per chart, , no children, living with mother, unemployed on [facility]. On my examination today: Patient seen and examined with nurse. Chart reviewed. Case discussed with nursing staff. On my examination today, the patient is somewhat stuporous and largely mute. She does verbalize a little, saying "I'm so confused." No posturing or stereotypies noted. She does appear somewhat internally preoccupied. Psychiatric interview is limited by ongoing catatonic state, and I am unable to obtain any meaningful past psychiatric, family, chemical dependency or social history from this patient for this reason. Tobacco Use In Past 30 Days: No Tobacco Past 30 Days Alcohol Use: Never Hospital Course Patient is a 47 y/o woman, , unemployed on [employer], domiciled with mother, past psychiatric history of schizoaffective disorder, previous psychiatric admissions (last here at [place] in 2002), no previous suicide attempts who presented to the hospital under [place] due to recent decompensation. Patient was transferred to the inpatient psychiatry unit for further evaluation and management. Patient upon the presentation was noted to be have catatonic features which she was provided with Ativan which had resolved. Patient continue to be noted to be disorganized and internally preoccupied and responding to internal stimuli. Patient was continued on quetiapine 400 mg by mouth daily with upper titration to 400 mg by mouth daily and 300 mg by mouth at bedtime, mirtazapine 30 mg by mouth at bedtime, gabapentin 300 mg by mouth 4 times a day. . Patient responded well to treatment , was noted to be cooperative with staff, no behavioral dyscontrol during admission and was active in groups and activities. Discharge patient states feeling ready to go home, denies any mood or psychotic symptoms, denies any SI or HI or AVH. She agreed to continue current treatment, and to adhere to follow appointments for continuity of care. Supportive psychotherapy provided. Patient advised to call 911 or go to nearest ED case of emergency. Patient agrees with plan. Results Blood Pressure 97 / 56 Vital Signs Date Time Temp Pulse Resp B/P (MAP) Pulse Ox O2 Delivery O2 Flow Rate FiO2 04/23/17 05:32 97.7 78 18 97/56 (70) 96 Laboratory Results Test 04/10/17 07:10 Cholesterol Level 151 MG/DL (120-200) HDL Cholesterol 73.2 MG/DL (40.0-60.0) Hemoglobin A1c 5.4 % (4.3-6.0) LDL Cholesterol 66 MG/DL (0-99) Triglycerides Level 58 MG/DL (42-150) Summary of Procedures None Pending results at discharge: No Medications # of Antipsychotic meds at D/C: 1 Approp Antipsych med options 1 - Minimum of three failed multiple trials of monotherapy. 2 - Documented plan to taper to monotherapy due to previous use of multiple meds OR cross-taper in progress at D/C. 3 - Documentation of augmentation of Clozapine. 4 - Justification other than those listed in allowable values 1-3, document here : Discharge Discharge Date: Apr 23, 2017 Discharge Diagnosis: (1) Schizoaffective disorder, bipolar type, with catatonia Diagnosis: Principal ICD Code: F25.0 - Schizoaffective disorder, bipolar type; F06.1 - Catatonic disorder due to known physiological condition Pt Condition on Discharge: Stable Discharge Disposition: Discharge Home Discharge Instructions Diet Instructions: Heart Healthy Diet Activities you can perform: Regular-No Restrictions Scheduled Appointment: [facility] Discharge Time > 30 minutes Mental Status Examination Speech: Slow (largely mute) Orientation: Person Memory: Impaired (describe) Attention and Concentration: Abnormal Suicidal Ideation: No (unable to assess) Previous Suicide Attempts: No Homicidal Ideation: No (unable to assess) Previous Homicide Attempts: No Mood: Other (unable to assess) Discharge/Advance Care Plan Health Problems: (1) Schizoaffective disorder, bipolar type, with catatonia Goals to promote your health * To prevent worsening of your condition and complications * To maintain your health at the optimal level Directions to meet your goals Take your medications as prescribed Follow your dietary instruction Follow activity as directed Keep your appointments as scheduled Take your immunizations and boosters as scheduled If your symptoms worsen call your PCP, if no PCP go to Urgent Care Center or Emergency Room For 24/ questions related to your inpatient stay or results of tests pending at discharge, please contact Dr. Aly Carroll at Smoking is Dangerous to Your Health. Avoid second hand smoking Aly Carroll MD Apr 23, 2017 15:54
== END 2017-04-23 12:45 | disposition home or self-care (01) | DRG 885 ==
LOC: H260 20:00 → H270 04-10 14:31 → H260 04-12 10:36
PROVIDERS: ADMIT Student in an Organized Health Care Education/Training Program; ATTEND Student in an Organized Health Care Education/Training Program
DX: F25.0 Schizoaffective disorder, bipolar type (principal); F06.1 Catatonic disorder due to known physiological condition; R47.01 Aphasia; K21.9 Gastro-esophageal reflux disease without esophagitis; Z79.899 Other long term (current) drug therapy
CPT/HCPCS: 80048; 80061; 83036; 93005; J2060